=== PATIENT | male | born 1960 | race Caucasian/White ===

== ENCOUNTER 2023-07-07 18:29 | Emergency (ER) | payer OTHER ==
[2023-07-07] MEDS ORDERED: Lidocaine 1% w/Epinephrine 1:100K 20 ML VIAL ONE (19:49)
[2023-07-07] MEDS ORDERED: Boostrix 0.5 ML (Tdap) VIAL (>/=7 yrs of age) ONE (20:50)
== END 2023-07-07 21:00 | disposition home or self-care (01) ==
LOC: ERS 18:29
DX: S61.012A Laceration without foreign body of left thumb without damage to nail, initial encounter (principal); I10 Essential (primary) hypertension; F17.200 Nicotine dependence, unspecified, uncomplicated; W26.8XXA Contact with other sharp object(s), not elsewhere classified, initial encounter; Y99.0 Civilian activity done for income or pay
CPT/HCPCS: 12042; 90471; 90715